=== PATIENT | male | born 1970 | race Caucasian/White ===

== ENCOUNTER → 2017-03-06 | Outpatient (CLI) | payer BC ==
[~2017-03-06] MED LIST: IOPAMIDOL (ISOVUE-300) 100 ML BTL ONE
== END ==
LOC: FIMAGING 12:00
PROVIDERS: ATTEND Surgery
DX: K62.9 Disease of anus and rectum, unspecified (principal); K56.69 Other intestinal obstruction; K76.89 Other specified diseases of liver; R91.1 Solitary pulmonary nodule; R59.9 Enlarged lymph nodes, unspecified
CPT/HCPCS: Q9967

== ENCOUNTER 2017-03-08 09:38 | Inpatient (IN) | payer BC ==
--- NOTE | 2017-03-08 08:13 | PDHPUP ---
History & Physical Update H&P update statement: This history and physical update is based on an assessment of the patient which was completed after admission or registration (within 24 hours), but prior to the surgery/procedure. H&P update: H&P reviewed & patient examined, no change in patient's condition since H&P completed
--- NOTE | 2017-03-08 08:17 | PDGENHP ---
History & Physical Chief Complaint: rectal cancer History of Present Illness: 46 male with rectal cancer at 10 cm obstructing. admit for low ant colectomy, possible liver bx. risks and options fully discussed. ct shows liver, lung and retroperitoneal node mets. Pertinent Past, Social, Family History: pmh-. fam hx + colon ca. ros- 10 pt review except wt loss 25 #/ no tob/ no cp sx. nka. meds - Relevant Physical Exam: heent: no nodes, nonicteric, supple, no oral lesions, peerla. chest clear. cor rr no m. abd slightly distended, +bs, no masses. gen ok. extrem full rom, full pulses. gen afebrile. neuro physiologic. skin ok Cardiorespiratory Assessment: impr obstructing rectal ca with mets. plan: low ant colectomy
[2017-03-08] MEDS ORDERED: cefOXitin SODIUM 2 GM in D5W 100 ML IV ONE (10:00)
[2017-03-08] MEDS ORDERED: LR 1,000 ML IV ONE (10:07)
[2017-03-08] MEDS ORDERED: HEPARIN 1000 UNIT/1 ML MDV ONE (11:12)
[2017-03-08] MEDS ORDERED: BUPIVACAINE 0.5% 30 ML SDV ONE (11:12)
[2017-03-08] MEDS ORDERED: ceFAZolin 1 GM/5 ML SYR ONE (11:14)
[2017-03-08] MEDS ORDERED: MIDAZOLAM 2 MG/2 ML VIAL IVP ONE (11:57)
--- NOTE | 2017-03-08 11:58 | PDANEPAE ---
ANE History of Present Illness here for lap low ant colon resection ANE Past Medical History - Cardiovascular History Hx Hypertension: No Hx Arrhythmias: No Hx Chest Pain: No Hx Coronary Artery / Peripheral Vascular Disease: No Hx CHF / Valvular Disease: No Hx Palpitations: No - Pulmonary History Hx COPD: No Hx Asthma/Reactive Airway Disease: No Hx Recent Upper Respiratory Infection: No Hx Oxygen in Use at Home: No Hx Sleep Apnea: No Sleep Apnea Screening Result - Last Documented: Negative - Neurologic History Hx Cerebrovascular Accident: No Hx Seizures: No Hx Dementia: No - Endocrine History Hx Diabetes: No - Renal History Hx Renal Disorders: No - Liver History Hx Hepatic Disorders: No - Neurological & Psychiatric Hx Hx Neurological and Psychiatric Disorders: No - Cancer History Hx Cancer: Yes Cancer History Comment: COLON CANCER - Congenital Disorder History Hx Congenital Disorders: No - GI History Hx Gastrointestinal Disorders: Yes Gastrointestinal History Comment: MASS COLON - Other Health History Other Health History: ROSACEA - Chronic Pain History Chronic Pain: No - Surgical History Prior Surgeries: HERNIA REPAIR CHILDHOOD ANE Review of Systems Review of systems is: negative Review of Systems: - Exercise capacity Exercise capacity: >=4 METS METS (RN): 5 METS ANE Patient History - Allergies Allergies/Adverse Reactions: No Known Drug Allergies Allergy (Verified 03/07/17 12:51) - Home Medications Home medications: home medication list seen and reviewed Home Medications: NK [No Known Home Meds] 03/07/17 [Last Taken Unknown] - NPO status NPO Status: no food or drink >8 hours NPO Since - Liquids (Date): 03/07/17 NPO Since - Liquids (Time): 22:00 NPO Since - Solids (Date): 03/07/17 NPO Since - Solids (Time): 16:00 - Anes Hx Anes Hx: no prior problems - Smoking Hx Smoking Status: Never smoked - Family Anes Hx Family Hx Anesthesia Complications: NEG ANE Labs/Vital Signs - Vital Signs Blood Pressure: 118/76 Heart Rate: 81 Respiratory Rate: 16 O2 Sat (%): 97 Height: 175.26 cm Weight: 68.492 kg ANE Physical Exam - Airway Neck exam: FROM Mallampati Score: Class 1 - Pulmonary Pulmonary: no respiratory distress - Cardiovascular Cardiovascular: regular rate and rhythym - ASA Status ASA Status: I ANE Anesthesia Plan Anesthesia Plan: general endotracheal anesthesia
[2017-03-08] MEDS ORDERED: fentaNYL 100 MCG/2 ML INJ ONE ×2 (12:08→14:22)
[2017-03-08] MEDS ORDERED: PROPOFOL/EMULSION 500 MG/50 ML BOTTLE IV ONE (12:11)
[2017-03-08 12:19] LABS: % IMMATURE GRANULYOCYTES 0.4 % (0.0-1.1); ABSOLUTE IMMATURE GRANULOCYTES 0.03 10^3/uL (0.00-0.10); ADD DIFF? NO; ADD MORPH? NO; ADD SCAN? NO; ATYPICAL LYMPHOCYTE FLAG 30 (0-99); FRAGMENT RBC FLAG 0 (0-99); HEMATOCRIT 45.1 % (40.0-51.0); HEMOGLOBIN 15.2 g/dL (13.7-17.5); LEFT SHIFT FLG 10 (0-99); LIPEMIA HEMOLYSIS FLAG 80 (0-99); MEAN CELL HEMOGLOBIN 32.8 pg (27.9-34.1); MEAN CELL HEMOGLOBIN CONCENTR. 33.7 g/dL (32.4-36.7); MEAN CELL VOLUME 97.4 fL (81.5-99.8); MEAN PLATELET VOLUME 10.4 fL (8.7-11.7); PLATELET CLUMPS FLAG 0 (0-99); PLATELET COUNT 233 10^3/uL (150-400); RED BLOOD CELL COUNT 4.63 10^6/uL (4.40-6.38); RED CELL DISTRIBUTION WIDTH 11.9 % (11.5-15.2)
[2017-03-08 12:28] LABS: INR 1.11 (0.83-1.16); PROTIME(PATIENT) 14.2 SEC (12.0-15.0)
[2017-03-08 12:29] LABS: APTT 29.2 SEC (23.0-38.0)
[2017-03-08 12:35] LABS: ALANINE AMINOTRANSFERASE 31 IU/L (21-72); ALBUMIN 4.1 g/dL (3.5-5.0); ALKALINE PHOSPHATASE 139 IU/L (38-126); ANION GAP 13 mEq/L (8-16); ASPARTATE AMINOTRANSFERASE 30 IU/L (17-59); BILIRUBIN,TOTAL 1.2 mg/dL (0.1-1.4); CALCIUM 9.6 mg/dL (8.5-10.4); CARBON DIOXIDE 24 mEq/l (22-31); CHLORIDE 102 mEq/L (97-110); CREATININE 1.1 mg/dL (0.7-1.3); GLOMERULAR FILTRATION RATE > 60; GLUCOSE 84 mg/dL (70-100); POTASSIUM 3.9 mEq/L (3.5-5.2); SODIUM 139 mEq/L (134-144); TOTAL PROTEIN 7.4 g/dL (6.3-8.2)
[2017-03-08] MEDS ORDERED: HYDROmorphONE/DILAUDID 2 MG/ML INJ ONE ×2 (12:40→14:21)
[2017-03-08] MEDS ORDERED: ROCURONIUM 50 MG/5 ML VIAL ONE ×3 (12:41→14:43)
[2017-03-08] MEDS ORDERED: ONDANSETRON 4 MG/2 ML VIAL IVP PRN (12:51)
[2017-03-08] MEDS ORDERED: PROMETHAZINE HCL 25 MG/ML INJ IVP PRN (12:51)
[2017-03-08] MEDS ORDERED: fentaNYL 100 MCG/2 ML INJ IVP PRN (12:51)
[2017-03-08] MEDS ORDERED: HYDROmorphONE/DILAUDID 1 MG/ML INJ IVP PRN ×2 (12:51→18:21)
[2017-03-08] MEDS ORDERED: ALBUTEROL 3 ML DEYVIAL IH PRN (12:51)
[2017-03-08] MEDS ORDERED: NALOXONE HCL 0.4 MG/ML INJ IVP PRN (12:51)
[2017-03-08] MEDS ORDERED: DEXAMETHASONE 4 MG/ML VIAL IVP PRN (12:51)
[2017-03-08] MEDS ORDERED: PROPOFOL 200 MG/20 ML VIAL ONE ×2 (13:35→14:24)
[2017-03-08] MEDS ORDERED: SUGAMMADEX SODIUM 200 MG/2 ML VIAL IVP ONE (15:34)
--- NOTE | 2017-03-08 16:11 | POSTANESTH ---
Post Anesthetic Evaluation Cardiovascular Status: Normal, Stable Respiratory Status: Normal, Stable Level of Consciousness/Mental Status: Can Participate in Eval Pain Control: Adequate, Prn Tx Ordered Nausea/Vomiting Control: Adequate, Prn Tx Ordered Complications Possibly Related to Anesthesia: None Noted
--- NOTE | 2017-03-08 18:46 | POSTOPPROG ---
Post Op Note Date of Operation: 03/08/17 Surgeon: Charles Jennings Diamond Sizer: RIGO ESPINOSA Anesthesiologist: SHANNAN Anesthesia: GET(General Endotracheal) Pre-op Diagnosis: OBSTRUCTING RECTAL CANCER Post-op Diagnosis: SAME Indication: PAIN Procedure: LOW ANT COLECTOMY WITH SPLENIC FLEXURE MOBILIZATION/ WEDGE LIVER BX Findings: LARGE RECTAL CNCER OBSTRUCTING AND PENETRATING WALL/ LIVER METS Inf/Abcess present in the surg proc area at time of surgery?: No Depth: Organ Space EBL: 50-100 Complications: 0 Drains: Oswaldo Samuels Specimen(s): LIVER BX LEFT LATERAL/ SIGMOID AND UPPER RECTUM
[2017-03-08] MEDS: NS 1,000 ML IV SCH (19:07)
[2017-03-08] MEDS: cefOXitin SODIUM 1 GM in D5W 50 ML IV SCH (19:28)
[2017-03-08] MEDS: HYDROmorphONE/DILAUDID 1 MG/ML INJ IVP PRN ×2 (21:13→23:57)
[2017-03-09] MEDS: cefOXitin SODIUM 1 GM in D5W 50 ML IV SCH ×3 (01:13→12:39)
[2017-03-09] MEDS: NS 1,000 ML IV SCH ×3 (03:34→19:43)
[2017-03-09] MEDS: HYDROmorphONE/DILAUDID 1 MG/ML INJ IVP PRN ×6 (03:34→23:36)
[2017-03-09 05:49] LABS: % IMMATURE GRANULYOCYTES 0.4 % (0.0-1.1); ABSOLUTE IMMATURE GRANULOCYTES 0.05 10^3/uL (0.00-0.10); ADD DIFF? NO; ADD MORPH? NO; ADD SCAN? NO; ATYPICAL LYMPHOCYTE FLAG 10 (0-99); FRAGMENT RBC FLAG 0 (0-99); HEMATOCRIT 34.5 % (40.0-51.0); HEMOGLOBIN 11.7 g/dL (13.7-17.5); LEFT SHIFT FLG 30 (0-99); LIPEMIA HEMOLYSIS FLAG 90 (0-99); MEAN CELL HEMOGLOBIN 33.3 pg (27.9-34.1); MEAN CELL HEMOGLOBIN CONCENTR. 33.9 g/dL (32.4-36.7); MEAN CELL VOLUME 98.3 fL (81.5-99.8); MEAN PLATELET VOLUME 9.7 fL (8.7-11.7); PLATELET CLUMPS FLAG 0 (0-99); PLATELET COUNT 192 10^3/uL (150-400); RED BLOOD CELL COUNT 3.51 10^6/uL (4.40-6.38); RED CELL DISTRIBUTION WIDTH 11.8 % (11.5-15.2)
[2017-03-09 06:00] LABS: ALANINE AMINOTRANSFERASE 35 IU/L (21-72); ALBUMIN 2.7 g/dL (3.5-5.0); ALKALINE PHOSPHATASE 78 IU/L (38-126); ANION GAP 8 mEq/L (8-16); ASPARTATE AMINOTRANSFERASE 25 IU/L (17-59); BILIRUBIN,TOTAL 0.7 mg/dL (0.1-1.4); CALCIUM 8.1 mg/dL (8.5-10.4); CARBON DIOXIDE 24 mEq/l (22-31); CHLORIDE 105 mEq/L (97-110); CREATININE 1.1 mg/dL (0.7-1.3); GLOMERULAR FILTRATION RATE > 60; GLUCOSE 147 mg/dL (70-100); POTASSIUM 4.6 mEq/L (3.5-5.2); SODIUM 137 mEq/L (134-144); TOTAL PROTEIN 4.9 g/dL (6.3-8.2)
--- NOTE | 2017-03-09 10:00 | SOAPPROG ---
SOAP Progress Note Assessment/Plan: Assessment: 46yo male with history of metastatic rectal cancer POD #1 s/p lower anterior colectomy with splenic flexure mobilization and wedge liver biopsy. Recovering well. Dressing change today Advance to light diet Awaiting full return of bowel function Continue pain control Ambulate as tolerated Cont wilkinson for accurate Is and Os Cont JAMA drain Seen c Dr. Jennings S: Pt feeling well today. Family present. Pain is well controlled. Passed flatus last night, no BM yet. Tolerating clears, feels hungry. Denies N/V, SOB, lightheadedness O: Patient lying in bed, NAD MMM RRR No increased WOB, lungs CTAB Abd appropriately TTP, Bowel sounds present Abd dressing with bloody drainage. Slowed since yesterday. Incision C/D/I JAMA drain with moderate sanguinous drainage. 03/09/17 10:00 Objective: Vital Signs Temp Pulse Resp BP Pulse Ox 36.8 C 64 16 89/52 L 98 03/09/17 08:03 03/09/17 08:03 03/09/17 08:03 03/09/17 08:03 03/09/17 08:03 Laboratory Results 03/09/17 05:39 03/09/17 05:39 03/08/17 03/09/17 03/10/17 05:59 05:59 05:59 Intake Total 2250 Output Total 1270 Balance 980 PT 14.2 SEC (12.0-15.0) 03/08/17 10:00 INR 1.11 (0.83-1.16) 03/08/17 10:00 ICD10 Worksheet Patient Problems: Problems Problem Status Onset Colon cancer Acute - ICD10 Problem Qualifiers (1) Colon cancer
[2017-03-09] MEDS: OXYCODONE/APAP 5/325 TAB PO PRN ×3 (11:19→21:51)
--- NOTE | 2017-03-09 17:31 | ASMTCMCOM ---
CM Note CM Note Notes: Pt here for sx, no needs identified, anticipate will dc home w/support of when medically stable. CM available for any changes. Date Signed: 03/09/2017 05:30 PM Electronically Signed By:Misti Martin RN
[2017-03-09] MEDS: ACETAMINOPHEN 325 MG TAB PO PRN (17:43)
[2017-03-10] MEDS: OXYCODONE/APAP 5/325 TAB PO PRN ×5 (03:33→20:44)
[2017-03-10] MEDS: HYDROmorphONE/DILAUDID 1 MG/ML INJ IVP PRN ×2 (06:36→22:48)
[2017-03-10] MEDS: ENOXAPARIN 40 MG/0.4 ML SYR SC SCH (08:44)
--- NOTE | 2017-03-10 11:50 | GCON ---
[f rep st] CONSULTATION ONCOLOGY CONSULTATION. HISTORY OF PRESENT ILLNESS: The patient is a very pleasant 46-year-old male whom I was asked to see by Dr. Charles Jennings for evaluation of a rectosigmoid malignancy. To review, patient has had intermi ttent diarrhea and constipation over the last year that has been severe and progressive, and he has l ost about 35 pounds. He was seen by Gastroenterology and underwent a colonoscopy and upper GI endosc opy, and my understanding is that he was found to have a cancer in the rectosigmoid colon; although, I do not have a full report of the procedure at this time. He had an abdominal/pelvic CT scan with c ontrast performed on 03/06. This showed numerous low-attenuation masses with peripheral rim enhancem ent present throughout the right and left lobe of the liver. One of the larger lesions measured 4 x 4 cm in the right lobe of the liver. There were several noncalcified pulmonary nodules present in th e right middle lobe and right lower lobe; largest in the right middle lobe measured 2.7 x 1.8 cm. Th ere were enlarged lymph nodes noted in the retroperitoneum, along the aortocaval and left periaortic magi chains; the largest field sales representative aortocaval lymph node measured 2.2 x 1.3 cm, and the left pe riaortic node measured 2.2 x 1.6 cm. A 4 x 3.5 cm mass noted at the rectosigmoid junction, and there were enlarged lymph nodes noted in the adjacent mesorectal fat. Because of his near obstructive sym ptoms, he was taken to surgery by Dr. Jennings on 03/08 and underwent a low anterior colectomy with sple gilbert flexure mobilization and a wedge biopsy of the liver. Pathology is pending, but the clinical imp ression was of a large rectal cancer obstructing and penetrating the wall with associated liver metas tasis. He is recovering well from this surgery. He has been generally quite healthy. FAMILY HISTORY: Significant for an uncle with colon cancer, probably in his 60s. He is . He works for [employer]. He has 2 daughters in their 20s. PHYSICAL EXAMINATION: CONSTITUTIONAL: He is a pleasant, alert male. I detect no icterus. There is no cervical, supraclavicular, axillary, or inguinal adenopathy. LUNGS: Clear to auscultation and p ercussion. CARDIAC: Normal S1, S2 without murmurs, clicks, or added sounds. ABDOMEN: Postop with quiet bowel sounds. EXTREMITIES: No edema. LABORATORY DATA: Admission CBC showed a white count of 7000, hemoglobin 15.2, hematocrit 45, and lorenzo telets 233,000. Alk phos is mildly elevated at 139. Transaminases were normal. Bilirubin was nitish l. IMPRESSION: Patient with a high rectal/rectosigmoid cancer, presenting with a 35-pound weight loss a nd obstructive symptoms, now status post surgical resection. There are obvious liver metastasis on h is scan and at the time of surgery, and he has involved nodes by CT criteria, as well, and also has p ulmonary metastasis. I met with him today and his , and we discussed the situation. I would lik e to offer him palliative chemotherapy, probably initially Folfox with the addition of Avastin after his surgery has healed. We discussed the rationale for this, potential side affects, and hoped for b enefit, which would be response to tumor and prolongation in survival. I think it would be reasonabl e to check his tumor for microsatellite instability as well as ABDIAS/NICKY panel, and we will order that. We did not discuss in detail prognosis in this situation, as he did not want to dwell on this type of information at this time. I will continue to discuss this issue with him. I think they may well benefit from a referral to our social work msw [facility]. I would like to thank Dr. Jennings and his primary care physician, Dr. Miri Zelaya, for the opportun ity to see this very pleasant patient in consultation. /[id number]/MODL
--- NOTE | 2017-03-10 12:31 | SOAPPROG ---
SOAP Progress Note Assessment/Plan: Assessment: STATUS POST LOW ANTERIOR COLON/DOING WELL/POSITIVE BMS/AFEBRILE/NONICTERIC/ REASONABLE PAIN CONTROL PATH PENDING ONCOLOGY CONSULT PENDING WOUND OKAY IN ABDOMEN SOFT WITH POSITIVE BOWEL SOUNDS HEMATOCRIT STABLE/CEA PENDING Plan: ADVANCE DIET 03/10/17 12:29 Objective: Vital Signs Temp Pulse Resp BP Pulse Ox 37.0 C 85 16 106/67 93 03/10/17 12:00 03/10/17 12:00 03/10/17 12:00 03/10/17 12:00 03/10/17 12:00 Laboratory Results 03/09/17 05:39 03/09/17 05:39 03/09/17 03/10/17 03/11/17 05:59 05:59 05:59 Intake Total 2250 960 Output Total 1270 2010 870 Balance 980 -1050 -870 PT 14.2 SEC (12.0-15.0) 03/08/17 10:00 INR 1.11 (0.83-1.16) 03/08/17 10:00 ICD10 Worksheet Patient Problems: Problems Problem Status Onset Colon cancer Acute
[2017-03-10] MEDS: NS 1,000 ML IV SCH (18:04)
[2017-03-10] MEDS: ONDANSETRON DISINTEGRATING 4 MG TAB PO PRN (18:09)
[2017-03-10] MEDS ORDERED: HYDROmorphONE/DILAUDID 2 MG/ML INJ IVP PRN (23:30)
[2017-03-11] MEDS: OXYCODONE/APAP 5/325 TAB PO PRN ×4 (04:26→22:35)
[2017-03-11] MEDS: ENOXAPARIN 40 MG/0.4 ML SYR SC SCH (09:25)
--- NOTE | 2017-03-11 11:34 | SOAPPROG ---
SOAP Progress Note Assessment/Plan: Assessment: 1. met rectal ca, s/p low anterior resection Plan:Continue post op course, review path when available, will follow up in clinic in 2 weeks, port with Dr Jennings 03/11/17 11:32 Subjective: Feels better Objective: Vital Signs Temp Pulse Resp BP Pulse Ox 98.4 F 82 14 121/73 H 93 03/11/17 11:23 03/11/17 11:23 03/11/17 11:23 03/11/17 11:23 03/11/17 11:23 Laboratory Results 03/09/17 05:39 03/09/17 05:39 03/10/17 03/11/17 03/12/17 05:59 05:59 05:59 Intake Total 960 250 Output Total 2009 9362 100 Balance -1050 -2460 -100 PT 14.2 SEC (12.0-15.0) 03/08/17 10:00 INR 1.11 (0.83-1.16) 03/08/17 10:00 ICD10 Worksheet Patient Problems: Problems Problem Status Onset Colon cancer Acute
--- NOTE | 2017-03-11 12:11 | SOAPPROG ---
SOAP Progress Note Assessment/Plan: Assessment: STATUS POST LOW ANTERIOR COLON/DOING WELL/POSITIVE BMS/AFEBRILE/NONICTERIC/ REASONABLE PAIN CONTROL PATH PENDING ONCOLOGY CONSULT PENDING WOUND OKAY IN ABDOMEN SOFT WITH POSITIVE BOWEL SOUNDS HEMATOCRIT STABLE/CEA PENDING Plan: ADVANCE DIET 03/10/17 12:29 03/11/17 12:10 AFEBRILE/VITAL SIGNS STABLE/TOLERATING P.O. WELL/WOUND OKAY/ PLAN HOME SOON/PROBABLE PORT IN THE A.M. Objective: Vital Signs Temp Pulse Resp BP Pulse Ox 36.9 C 82 14 121/73 H 93 03/11/17 11:23 03/11/17 11:23 03/11/17 11:23 03/11/17 11:23 03/11/17 11:23 Laboratory Results 03/09/17 05:39 03/09/17 05:39 03/10/17 03/11/17 03/12/17 05:59 05:59 05:59 Intake Total 960 250 Output Total 2009 2710 100 Balance -1050 -2460 -100 PT 14.2 SEC (12.0-15.0) 03/08/17 10:00 INR 1.11 (0.83-1.16) 03/08/17 10:00 ICD10 Worksheet Patient Problems: Problems Problem Status Onset Colon cancer Acute
[2017-03-11] MEDS ORDERED: ceFAZolin 2 GM/DEXTROSE 100 ML IV ONE (14:12)
--- NOTE | 2017-03-11 14:14 | SOAPPROG ---
SOAP Progress Note Assessment/Plan: Assessment: STATUS POST LOW ANTERIOR COLON/DOING WELL/POSITIVE BMS/AFEBRILE/NONICTERIC/ REASONABLE PAIN CONTROL PATH PENDING ONCOLOGY CONSULT PENDING WOUND OKAY IN ABDOMEN SOFT WITH POSITIVE BOWEL SOUNDS HEMATOCRIT STABLE/CEA PENDING Plan: ADVANCE DIET 03/10/17 12:29 03/11/17 12:10 AFEBRILE/VITAL SIGNS STABLE/TOLERATING P.O. WELL/WOUND OKAY/ PLAN HOME SOON/PROBABLE PORT IN THE A.M. 03/11/17 14:14 WILL PROCEED WITH THE LEFT SUBCLAVIAN PORT IN THE A.M./RISKS AND OPTIONS FULLY DISCUSSED AND HE WISHES TO PROCEED Objective: Vital Signs Temp Pulse Resp BP Pulse Ox 36.9 C 82 14 121/73 H 93 03/11/17 11:23 03/11/17 11:23 03/11/17 11:23 03/11/17 11:23 03/11/17 11:23 Laboratory Results 03/09/17 05:39 03/09/17 05:39 03/10/17 03/11/17 03/12/17 05:59 05:59 05:59 Intake Total 960 250 Output Total 2009 9354 160 Balance -1050 -2460 -160 PT 14.2 SEC (12.0-15.0) 03/08/17 10:00 INR 1.11 (0.83-1.16) 03/08/17 10:00 ICD10 Worksheet Patient Problems: Problems Problem Status Onset Colon cancer Acute
[2017-03-11] MEDS: PANTOPRAZOLE SODIUM 40 MG TAB PO SCH (15:15)
[2017-03-11] MEDS: METOCLOPRAMIDE 10 MG TAB PO SCH ×3 (15:15→20:48)
[2017-03-11] MEDS: ONDANSETRON 4 MG/2 ML VIAL IVP PRN ×2 (18:02→22:39)
[2017-03-11] MEDS: ONDANSETRON DISINTEGRATING 4 MG TAB PO PRN (22:50)
[2017-03-11] MEDS: ACETAMINOPHEN 325 MG TAB PO PRN (23:08)
[2017-03-12] MEDS ORDERED: ERTAPENEM 1 GM in NS 100 ML IV ONE (00:14)
[2017-03-12] MEDS: ACETAMINOPHEN 325 MG TAB PO PRN (03:14)
[2017-03-12] MEDS: METOCLOPRAMIDE 10 MG TAB PO SCH ×4 (05:57→21:07)
[2017-03-12] MEDS ORDERED: ceFAZolin 2 GM/DEXTROSE 100 ML IV ONE (06:00)
--- NOTE | 2017-03-12 09:12 | SOAPPROG ---
SOAP Progress Note Assessment/Plan: Assessment/Plan: 46 Y M s/p colectomy for metastatic obstructing colon cancer, POD# 4. Fevers overnight are concerning. Will hold off on port placement for today. CXR without PNA or major free air on wet read. Will get Abd/Pel CT, r/o leak or other cause of fever. Will continue NPO in case intervention needed. Hold lovenox for same reason. Seen and examined with Dr. Jennings this am. S: +fever overnight. no new or increased pain. no n/v. O: gen: alert, nad heent: mmm pulm: no wob cor: rrr abd: soft, inc cdi, no erythema 03/12/17 09:08 Objective: Vital Signs Temp Pulse Resp BP Pulse Ox 37.6 C 97 12 105/67 96 03/12/17 08:00 03/12/17 08:00 03/12/17 08:00 03/12/17 08:00 03/12/17 08:00 Laboratory Results 03/09/17 05:39 03/09/17 05:39 03/11/17 03/12/17 03/13/17 05:59 05:59 05:59 Intake Total 250 700 Output Total 8350 1415 Balance -2460 -715 PT 14.2 SEC (12.0-15.0) 03/08/17 10:00 INR 1.11 (0.83-1.16) 03/08/17 10:00 ICD10 Worksheet Patient Problems: Problems Problem Status Onset Colon cancer Acute
[2017-03-12] MEDS: PANTOPRAZOLE SODIUM 40 MG TAB PO SCH (09:19)
[2017-03-12] MEDS: ONDANSETRON 4 MG/2 ML VIAL IVP PRN (09:24)
[2017-03-12] MEDS: NS 1,000 ML IV SCH ×2 (09:41→18:21)
[2017-03-12] MEDS ORDERED: IOPAMIDOL (ISOVUE-300) 100 ML BTL ONE (10:00)
[2017-03-12 10:01] LABS: CREATININE 0.9 mg/dL (0.7-1.3); GLOMERULAR FILTRATION RATE > 60
[2017-03-12 16:58] LABS: % IMMATURE GRANULYOCYTES 0.4 % (0.0-1.1); ABSOLUTE IMMATURE GRANULOCYTES 0.04 10^3/uL (0.00-0.10); ADD DIFF? NO; ADD MORPH? NO; ADD SCAN? YES; ATYPICAL LYMPHOCYTE FLAG 10 (0-99); FRAGMENT RBC FLAG 0 (0-99); HEMOGLOBIN 12.8 g/dL (13.7-17.5); LIPEMIA HEMOLYSIS FLAG 80 (0-99); MEAN CELL HEMOGLOBIN 32.7 pg (27.9-34.1); MEAN CELL HEMOGLOBIN CONCENTR. 33.7 g/dL (32.4-36.7); MEAN CELL VOLUME 96.9 fL (81.5-99.8); MEAN PLATELET VOLUME 9.3 fL (8.7-11.7); PLATELET CLUMPS FLAG 0 (0-99); PLATELET COUNT 266 10^3/uL (150-400); RED BLOOD CELL COUNT 3.92 10^6/uL (4.40-6.38); RED CELL DISTRIBUTION WIDTH 11.8 % (11.5-15.2)
[2017-03-12 17:04] LABS: LEFT SHIFT FLG 230 (0-99)
[2017-03-12 17:33] LABS: SCAN NEGATIVE
[2017-03-13] MEDS: NS 1,000 ML IV SCH (02:24)
[2017-03-13] MEDS: METOCLOPRAMIDE 10 MG TAB PO SCH ×3 (04:59→16:26)
[2017-03-13] MEDS: ERTAPENEM 1 GM in NS 100 ML IV SCH (08:04)
--- NOTE | 2017-03-13 08:47 | SOAPPROG ---
SOAP Progress Note Assessment/Plan: Assessment/Plan: 46 Y M s/p colectomy for metastatic obstructing colon cancer, POD# 5. Fever resolved. CT neg for leak/abscess per rads. Still, some bubbles near anastomosis are suspicious although could just be normal post surgical finding. CXR neg for PNA. Flex sig today to r/o anastomotic leak. If normal, then might be able to d/c wilkinson (still in place for decompression/surgical reasons) and consider port placement soon. Holding lovenox. Consent in chart. NPO p 8 am. Continue ertapenem for possible contamination/leak. S: Best night yet--slept well, no pain meds in 24 hrs, no fever/chills/sweats. Tolerated clears. O: gen: alert, nad heent: mmm pulm: no wob cor: rrr abd: soft, inc cdi, no erythema Drain: thin serosanguinous, scant 03/13/17 08:43 Objective: Vital Signs Temp Pulse Resp BP Pulse Ox 36.9 C 76 16 106/62 97 03/13/17 04:00 03/13/17 04:00 03/13/17 04:00 03/13/17 04:00 03/13/17 04:00 Laboratory Results 03/12/17 16:36 03/12/17 09:30 03/12/17 03/13/17 03/14/17 05:59 05:59 05:59 Intake Total 700 2159 Output Total 1415 1410 Balance -715 749 PT 14.2 SEC (12.0-15.0) 03/08/17 10:00 INR 1.11 (0.83-1.16) 03/08/17 10:00 ICD10 Worksheet Patient Problems: Problems Problem Status Onset Colon cancer Acute
[2017-03-13] MEDS ORDERED: LR 1,000 ML IV ONE (12:15)
[2017-03-13] MEDS ORDERED: BACITRACIN ZINC 14.2 GM OINTTUBE TP ONE ×2 (12:22→13:46)
[2017-03-13] MEDS ORDERED: BUPIVACAINE 0.5% 30 ML SDV ONE (12:23)
[2017-03-13] MEDS ORDERED: LIDOCAINE 1% 300 MG/30 ML SDV ONE ×2 (12:23→13:25)
[2017-03-13] MEDS ORDERED: MIDAZOLAM 2 MG/2 ML VIAL IVP ONE (12:41)
--- NOTE | 2017-03-13 12:43 | PDANEPAE ---
ANE Past Medical History - Cardiovascular History Hx Hypertension: No Hx Arrhythmias: No Hx Chest Pain: No Hx Coronary Artery / Peripheral Vascular Disease: No Hx CHF / Valvular Disease: No Hx Palpitations: No - Pulmonary History Hx COPD: No Hx Asthma/Reactive Airway Disease: No Hx Recent Upper Respiratory Infection: No Hx Oxygen in Use at Home: No Hx Sleep Apnea: No Sleep Apnea Screening Result - Last Documented: Negative - Neurologic History Hx Cerebrovascular Accident: No Hx Seizures: No Hx Dementia: No - Endocrine History Hx Diabetes: No - Renal History Hx Renal Disorders: No - Liver History Hx Hepatic Disorders: No - Neurological & Psychiatric Hx Hx Neurological and Psychiatric Disorders: No - Cancer History Hx Cancer: Yes Cancer History Comment: COLON CANCER - Congenital Disorder History Hx Congenital Disorders: No - GI History Hx Gastrointestinal Disorders: Yes Gastrointestinal History Comment: MASS COLON - Other Health History Other Health History: ROSACEA - Chronic Pain History Chronic Pain: No - Surgical History Prior Surgeries: HERNIA REPAIR CHILDHOOD ANE Review of Systems Review of Systems: - Exercise capacity METS (RN): 5 METS ANE Patient History - Allergies Allergies/Adverse Reactions: No Known Drug Allergies Allergy (Verified 03/07/17 12:51) - Home Medications Home Medications: NK [No Known Home Meds] 03/07/17 [Last Taken Unknown] - NPO status NPO Since - Liquids (Date): 03/12/17 NPO Since - Liquids (Time): 22:00 NPO Since - Solids (Date): 03/12/17 NPO Since - Solids (Time): 06:00 - Anes Hx Anes Hx: no prior problems (Low ant colectomy a few days ago.) - Smoking Hx Smoking Status: Never smoked - Family Anes Hx Family Hx Anesthesia Complications: NEG ANE Labs/Vital Signs - Labs Result Diagrams: 03/12/17 16:36 03/12/17 09:30 - Vital Signs Blood Pressure: 119/70 Heart Rate: 87 Respiratory Rate: 16 O2 Sat (%): 93 Height: 175.26 cm Weight: 68.492 kg ANE Physical Exam - Airway Neck exam: FROM Mallampati Score: Class 1 Mouth exam: normal dental/mouth exam - Pulmonary Pulmonary: no respiratory distress, no rales or rhonchi, clear to auscultation - Cardiovascular Cardiovascular: regular rate and rhythym, no murmur, rub, or gallop - ASA Status ASA Status: III ANE Anesthesia Plan Anesthesia Plan: GA with mask
[2017-03-13] MEDS ORDERED: fentaNYL 100 MCG/2 ML INJ ONE (13:01)
[2017-03-13] MEDS ORDERED: PROPOFOL 200 MG/20 ML VIAL ONE ×2 (13:01→13:11)
[2017-03-13] MEDS ORDERED: LR 500 ML IV PRN (13:07)
[2017-03-13] MEDS ORDERED: fentaNYL 100 MCG/2 ML INJ IVP PRN (13:07)
[2017-03-13] MEDS ORDERED: MEPERIDINE 25 MG/ML SYR IVP PRN (13:07)
[2017-03-13] MEDS ORDERED: PROMETHAZINE HCL 25 MG/ML INJ IVP PRN (13:07)
[2017-03-13] MEDS ORDERED: DEXAMETHASONE 4 MG/ML VIAL IVP PRN (13:07)
[2017-03-13] MEDS ORDERED: ONDANSETRON 4 MG/2 ML VIAL IVP PRN (13:07)
[2017-03-13] MEDS ORDERED: NALOXONE HCL 0.4 MG/ML INJ IVP PRN (13:07)
[2017-03-13] MEDS ORDERED: ceFAZolin 1 GM VIAL ONE ×2 (13:24)
--- NOTE | 2017-03-13 14:04 | POSTOPPROG ---
Post Op Note Date of Operation: 03/13/17 Surgeon: Charles Jennings Anesthesiologist: Ronald Jimenez Anesthesia: GET(General Endotracheal) Pre-op Diagnosis: metastatic colon CA Post-op Diagnosis: same Procedure: power port placement with flouroscopy Findings: good position and flow Inf/Abcess present in the surg proc area at time of surgery?: No EBL: Minimal Complications: none
--- NOTE | 2017-03-13 14:06 | POSTOPPROG ---
Post Op Note Date of Operation: 03/13/17 Surgeon: Charles Jennings Anesthesiologist: Ronald Larose Anesthesia: GET(General Endotracheal) Pre-op Diagnosis: metastatic colon CA, r/o anastomotic leak Procedure: flexible sigmoidoscopy Findings: no anastomotic breakdown or leak, viable mucosa Inf/Abcess present in the surg proc area at time of surgery?: No EBL: Minimal Complications: none
--- NOTE | 2017-03-13 14:28 | POSTANESTH ---
Post Anesthetic Evaluation Cardiovascular Status: Normal, Stable, Similar to Pre-Op Cond Respiratory Status: Normal, Stable, Similar to Pre-op Cond. Level of Consciousness/Mental Status: Can Participate in Eval, Alert and Oriented Pain Control: Adequate, Prn Tx Ordered Nausea/Vomiting Control: Adequate, Prn Tx Ordered Complications Possibly Related to Anesthesia: None Noted
[2017-03-13] MEDS: PANTOPRAZOLE SODIUM 40 MG TAB PO SCH (15:48)
[2017-03-13] MEDS: ACETAMINOPHEN 325 MG TAB PO PRN (21:52)
[2017-03-14] MEDS: ACETAMINOPHEN 325 MG TAB PO PRN ×2 (02:28→16:12)
[2017-03-14] MEDS: NS 1,000 ML IV SCH (03:23)
[2017-03-14 05:33] LABS: % IMMATURE GRANULYOCYTES 0.2 % (0.0-1.1); ABSOLUTE IMMATURE GRANULOCYTES 0.02 10^3/uL (0.00-0.10); ADD DIFF? NO; ADD MORPH? NO; ADD SCAN? NO; ATYPICAL LYMPHOCYTE FLAG 10 (0-99); FRAGMENT RBC FLAG 0 (0-99); HEMATOCRIT 34.1 % (40.0-51.0); HEMOGLOBIN 11.8 g/dL (13.7-17.5); LEFT SHIFT FLG 20 (0-99); LIPEMIA HEMOLYSIS FLAG 90 (0-99); MEAN CELL HEMOGLOBIN CONCENTR. 34.6 g/dL (32.4-36.7); MEAN CELL VOLUME 95.3 fL (81.5-99.8); MEAN PLATELET VOLUME 8.9 fL (8.7-11.7); PLATELET CLUMPS FLAG 10 (0-99); PLATELET COUNT 247 10^3/uL (150-400); RED BLOOD CELL COUNT 3.58 10^6/uL (4.40-6.38); RED CELL DISTRIBUTION WIDTH 11.7 % (11.5-15.2)
[2017-03-14] MEDS: ERTAPENEM 1 GM in NS 100 ML IV SCH (08:31)
[2017-03-14] MEDS: ENOXAPARIN 40 MG/0.4 ML SYR SC SCH (08:31)
[2017-03-14] MEDS: PANTOPRAZOLE SODIUM 40 MG TAB PO SCH (08:31)
--- NOTE | 2017-03-14 10:04 | SOAPPROG ---
SOAP Progress Note Assessment/Plan: Assessment: 46yo male with history of metastatic rectal cancer POD #6 s/p lower anterior colectomy with splenic flexure mobilization and wedge liver biopsy. POD#1 port placement. Recovering well. Slight fever yesterday. Afebrile today with normal WBC ct. CT negative for anastomotic leak Flex sig yesterday without evidence of anastomotic leak CXR negative for pneumonia Advance to light diet Continue pain control Cont abx Ambulate as tolerated Cont wilkinson today after failure to void yesterday May shower Cont JAMA drain Discussed c Dr. Jennings S: Pt feeling well today. Pain is well controlled. Tolerating clears, feels hungry. Denies N/V, SOB, lightheadedness O: Afebrile Patient lying in bed, NAD MMM RRR No increased WOB, lungs CTAB Abd soft, nondistended Abd incision C/D/I JAMA drain with thin sanguinous drainage. Objective: Vital Signs Temp Pulse Resp BP Pulse Ox 37.1 C 90 12 119/75 94 03/14/17 08:00 03/14/17 08:00 03/14/17 08:00 03/14/17 08:00 03/14/17 08:00 Laboratory Results 03/14/17 05:19 03/12/17 09:30 03/13/17 03/14/17 03/15/17 05:59 05:59 05:59 Intake Total 2159 2208 Output Total 1410 2818 Balance 749 -610 PT 14.2 SEC (12.0-15.0) 03/08/17 10:00 INR 1.11 (0.83-1.16) 03/08/17 10:00 ICD10 Worksheet Patient Problems: Problems Problem Status Onset Colon cancer Acute - ICD10 Problem Qualifiers (1) Colon cancer
--- NOTE | 2017-03-14 15:57 | ASMTCMCOM ---
CM Note CM Note Notes: Spoke w/RN, plan remains the same. Pt will dc home w/support of when medically stable, CM available for any changes. Date Signed: 03/14/2017 03:56 PM Electronically Signed By:Misti Martin RN
[2017-03-14] MEDS ORDERED: CALCIUM CARBONATE 500 MG CHEWABLE TAB PO PRN (18:14)
[2017-03-14] MEDS ORDERED: FAMOTIDINE 20 MG TAB PO ONE (18:15)
[2017-03-14 19:46] VITALS: RESP 16
[2017-03-15 07:55] VITALS: O2SAT 93
[2017-03-15] MEDS: ERTAPENEM 1 GM in NS 100 ML IV SCH (10:06)
[2017-03-15] MEDS: PANTOPRAZOLE SODIUM 40 MG TAB PO SCH (10:07)
[2017-03-15] MEDS: ENOXAPARIN 40 MG/0.4 ML SYR SC SCH (10:07)
[2017-03-15 12:53] VITALS: BP 122/79; PULSE 86; TEMP 98.7
--- NOTE | 2017-03-15 12:58 | SOAPPROG ---
SOAP Progress Note Assessment/Plan: Assessment: 46yo male with history of metastatic rectal cancer POD #7 s/p lower anterior colectomy with splenic flexure mobilization and wedge liver biopsy. POD#2 port placement. Recovering well. Afebrile today with normal WBC ct. Regular diet Continue pain control Cont wilkinson today after failure to void yesterday Cont JAMA drain May shower Dispo: to home today. Will remove wilkinson and JAMA in the office early next week. Discussed c Dr. Jennings S: Pt feeling well today. Pain is well controlled. Tolerating diet. Having BMs. Denies N/V, SOB. O: Afebrile Patient lying in bed, NAD MMM RRR No increased WOB, lungs CTAB Abd soft, nondistended, +BS Abd incision C/D/I Port incision C/D/I with steri strips JAMA drain with thin minimal serosang drainage. Objective: Vital Signs Temp Pulse Resp BP Pulse Ox 37.1 C 86 16 122/79 H 93 03/15/17 12:00 03/15/17 12:00 03/15/17 12:00 03/15/17 12:00 03/15/17 12:00 Microbiology 03/12/17 01:01 Urine Culture - Final Urine,Catheterized Laboratory Results 03/14/17 05:19 03/12/17 09:30 03/14/17 03/15/17 03/16/17 05:59 05:59 05:59 Intake Total 2208 Output Total 2818 925 Balance -610 -925 PT 14.2 SEC (12.0-15.0) 03/08/17 10:00 INR 1.11 (0.83-1.16) 03/08/17 10:00 ICD10 Worksheet Patient Problems: Problems Problem Status Onset Colon cancer Acute - ICD10 Problem Qualifiers (1) Colon cancer
--- NOTE | 2017-03-15 15:02 | ASDISCHSUM ---
Discharge Information Plan Status:Home with No Needs Medically Cleared to Leave: Discharge Date:03/15/2017 01:40 PM CM D/C Disposition:Home, Routine, Self-Care ADT D/C Disposition:Home, Routine, Self-Care Projected Discharge Date:03/14/2017 12:00 AM Transportation at D/C:Family Discharge Delay Reason: Follow-Up Date:03/14/2017 12:00 AM Discharge Slot: Final Diagnosis: Placement Information Patient Contact Information Contact Name:DONNY Relationship: Address: Home Phone: Work Phone: City: Alternate Phone: State/[employer] Code: Email: Financial Information Financial Class:HMO and PPO Plans Primary Plan Desc: OUT OF STATE PPO Primary Plan Number:[id number] Secondary Plan Desc: Secondary Plan Number: Assessment Information [facility] CM Progress Note CM Note CM Note Notes: Pt here for sx, no needs identified, anticipate will dc home w/support of when medically stable. CM available for any changes. Date Signed: 03/09/2017 05:30 PM Electronically Signed By:Misti Martin RN [facility] CM Progress Note CM Note CM Note Notes: Spoke w/JEREL, plan remains the same. Pt will dc home w/support of when medically stable, CM available for any changes. Date Signed: 03/14/2017 03:56 PM Electronically Signed By:Misti Martin RN Intervention Information
--- NOTE | 2017-03-21 05:13 | GOP ---
[f rep st] OPERATIVE REPORT DATE OF OPERATION: 03/13/2017 SURGEON: Charles Jennings MD ANESTHESIOLOGIST: Dr. Larose. 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 POSTOPERATIVE DIAGNOSIS: History of obstructing rectal cancer with low anterior anastomosis and feve r. PROCEDURE PERFORMED: Limited colonoscopy. FINDINGS: The patient was found to have an intact low anterior rectal anastomosis with no evidence o f perforation, dehiscence, or ischemia. DESCRIPTION OF PROCEDURE: Patient taken to the operating room where he received satisfactory general endotracheal anesthesia Dr. Larose. He was placed in the left lateral decubitus position. Anus was well lubricated. A rectal exam was done which appeared to reveal an intact anastomotic ring. There was a fair amount of fecal material. However, the colonoscope was introduced and passed without diff iculty through the anastomosis. The colon was irrigated and washed until reasonably clear. The scop e was taken up all the way up to the splenic flexure and then withdrawn slowly. It was irrigated the entire way. There was no evidence of any additional cancer nodules or polyps and anastomotic area a ppeared to be intact with no evidence of extravasation or perforation or leakage. The scope was with drawn. Air was suctioned clear from the left colon. He tolerated the procedure well. There were no complications. /[id number]/MODL
--- NOTE | 2017-03-21 05:48 | GOP ---
[f rep st] OPERATIVE REPORT DATE OF OPERATION: 03/13/2017 SURGEON: Charles Jennings MD PREOPERATIVE DIAGNOSIS: POSTOPERATIVE DIAGNOSIS: PROCEDURE PERFORMED: A right subclavian port placement with fluoroscopic guidance. FINDINGS: Patient was found in good position and good flow of his port catheter. DESCRIPTION OF PROCEDURE: The patient was taken to the operating room, where he received satisfactor y general endotracheal anesthesia by Dr. Larose. Placed in a supine position, prepped and draped in t he usual sterile fashion. A single stick was made in the right subclavian vein. Guidewire was intro duced. Position was confirmed with fluoroscopy. A subcu pocket was made in the 2nd intercostal spac e, and port tubing from that pocket was tunneled over to the insertion site. Catheter was trimmed to the appropriate length using fluoroscopic guidance and then introduced via the introducer sheath and dilator system into the right atrium. Good backflow was achieved. The catheter was flushed with he uche saline. The port was secured to the fascia with 3-0 Vicryl. The pocket was closed using 3-0 V icryl for the subcu, 4-0 Prolene subcuticular stitch for the skin. The entrance site was closed with Prolene mattress suture. Wound was infiltrated with 0.5% Marcaine. He tolerated the procedure quit e well. Blood loss negligible. No complications. Taken to recovery room in good condition. /[id number]/MODL
--- NOTE | 2017-03-21 05:58 | GOP ---
[f rep st] OPERATIVE REPORT DATE OF OPERATION: 03/08/2017 SURGEON: Charles Jennings MD [employer] RECEPTIONIST: Miri Aguilar PA-C. ANESTHESIOLOGIST: Dr. Case. PREOPERATIVE DIAGNOSIS: Obstructing rectal cancer. POSTOPERATIVE DIAGNOSIS: Obstructing rectal cancer, plus metastatic rectal cancer with liver metasta ses. PROCEDURE PERFORMED: Laparoscopic wedge liver biopsy, laparoscopic-assisted low anterior colectomy w ith splenic flexure mobilization. FINDINGS: The patient was found to have a very large rectal cancer obstructing the proximal rectum a nd penetrating through the wall. In addition, he had multiple liver metastases. ESTIMATED BLOOD LOSS: Less than 100 cc. DESCRIPTION OF PROCEDURE: Patient taken to the operating room where he received satisfactory general endotracheal anesthesia by Dr. Case. He was placed in supine position in low stirrups and prepped and draped in usual sterile fashion. A periumbilical incision was made. A Veress needle was insert ed. Pneumoperitoneum was established. Trocar was introduced. Laparoscope was introduced. Good vis ualization was obtained. Three other trocars were placed in the lower abdomen under direct vision. The colon was mobilized. The left colon was freed up from the lateral abdominal wall and dissection extended up around the splenic flexure to mobilize that. The peritoneum on either side of the distal sigmoid was incised. Dissection extended down into the presacral space, where the entire colon was elevated above the sacrum. This was all done with the Harmonic scalpel. The dissection extended alexis n the sides of the rectum and the lateral stalks were divided with the Harmonic scalpel. The periton eum over the anterior portion of the colon was divided with the Harmonic scalpel. Dissection extende d down behind the seminal vesicles and prostate gland. Difficult to see around the tumor. However, a t that point, a lower abdominal midline incision was made and carried through the linea alba for bett er help in mobilizing the rectum that was quite fixed on the left side of the pelvic wall. This was carefully dissected free with the Harmonic scalpel with care to avoid injury to the prostate or urete r. Eventually, there was adequate dissection down below the tumor and the rectum was then divided wi th the Endo-MAKENZIE stapler. The proximal mesentery had been divided with the Harmonic scalpel and the c olon was passed easily down into the pelvis. The proximal colon was divided with a MAKENZIE stapler and r emoved. A pursestring suture device was used in the proximal end; a 28 EEA was selected. This was p assed transanally up to the end of the rectal stump. At that point, the spike was brought out adjace nt to the suture line and the 2 pieces were connected and then closed after adequate position was est ablished. The stapler was fired and then removed. Two excellent rings were present. The anastomosi s was tested under water with installation of air in the rectum and appeared to be airtight with the proximal colon cross-clamped. The wound was irrigated. Hemostasis was obtained. A 15 round JAMA drai n was placed adjacent to the rectum in the presacral space and brought out through a separate stab in cision in the lower abdomen using one of the previous trocar sites. The fascia was then closed with a running PDS suture and subcu with 3-0 Vicryl. The skin was closed with skin tammy. The drain wa s attached to the skin with 3-0 silk suture. Attention was then turned to the liver, where a wedge b iopsy was taken. This was actually done laparoscopically prior to opening the pelvis. A wedge excis ion of a nodule in the left lateral segment of the liver was done with the Harmonic scalpel and that specimen was sent to Pathology. The trocar sites were closed with 4-0 Monocryl subcuticular stitch f or the skin and 0 Vicryl for the fascia. All wounds were infiltrated with 0.5% Marcaine. He tolerat ed the procedure well, was taken to the recovery room in good condition. /[id number]/MODL
== END 2017-03-15 13:40 | disposition home or self-care (01) | DRG 333 ==
LOC: F3E 09:38
PROVIDERS: ADMIT Surgery; ATTEND Surgery
PROC: 0FB04ZX Excision of Liver, Percutaneous Endoscopic Approach, Diagnostic (ICD-10-PCS; principal; 2017-03-08 12:00)
PROC: 0DBN0ZX Excision of Sigmoid Colon, Open Approach, Diagnostic (ICD-10-PCS; principal; 2017-03-08 12:00)
PROC: 0DJD4ZZ Inspection of Lower Intestinal Tract, Percutaneous Endoscopic Approach (ICD-10-PCS; principal; 2017-03-08 12:00)
PROC: 0DBP0ZZ Excision of Rectum, Open Approach (ICD-10-PCS; principal; 2017-03-08 12:00)
PROC: 0DJD8ZZ Inspection of Lower Intestinal Tract, Via Natural or Artificial Opening Endoscopic (ICD-10-PCS; 2017-03-13)
PROC: 0JH60XZ Insertion of Tunneled Vascular Access Device into Chest Subcutaneous Tissue and Fascia, Open Approach (ICD-10-PCS; 2017-03-13 12:45)
PROC: 02HV33Z Insertion of Infusion Device into Superior Vena Cava, Percutaneous Approach (ICD-10-PCS; 2017-03-13 12:45)
DX: C19 Malignant neoplasm of rectosigmoid junction (principal); C78.7 Secondary malignant neoplasm of liver and intrahepatic bile duct; C77.9 Secondary and unspecified malignant neoplasm of lymph node, unspecified; C78.00 Secondary malignant neoplasm of unspecified lung; Z53.31 Laparoscopic surgical procedure converted to open procedure
CPT/HCPCS: C1788; J0690; J0694; J0697; J1170; J1335; J1642; J1650; J2250; J2405; J2704; J3010; Q9967

== ENCOUNTER → 2017-03-28 | Outpatient (CLI) | payer BC | LOC: FIMAGING 09:34 | PROVIDERS: ATTEND Internal Medicine Hematology & Oncology | DX: C78.01 Secondary malignant neoplasm of right lung (principal); C19 Malignant neoplasm of rectosigmoid junction | CPT/HCPCS: Q9967 ==